=== PATIENT | male | born 1975 | race Two or more races ===

== ENCOUNTER 2019-01-03 21:32 | Emergency (ER) | payer BC ==
[~2019-01-03] VITALS: Ht 177.8 cm; Wt 86.2 kg
[2019-01-03 21:46] VITALS: BP 122/81
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
[2019-01-03 22:18] VITALS: BP 124/80
--- NOTE | 2019-01-03 22:18 | NUR ---
ER DISCHARGE NOTE: Patient is cleared to be discharged per Dr. Rojas. Suture done by . Pt is A/O x4 on room air with stable vital signs. Pt was given D/C and prescription instructions and pt was able to verbalize understanding. Pt's ID band removed. Pt is able to ambulate with steady gait and took all belongings.
== END 2019-01-03 22:18 | disposition home or self-care (01) ==
LOC: EMR 22:05
DX: S01.511A Laceration without foreign body of lip, initial encounter (principal); W20.8XXA Other cause of strike by thrown, projected or falling object, initial encounter; Y92.9 Unspecified place or not applicable; Z91.018 Allergy to other foods
CPT/HCPCS: 99282